=== PATIENT | female | born 1965 | race Caucasian/White ===

== ENCOUNTER → 2016-06-16 | Outpatient (CLI) | payer OTHER ==
[~2016-06-16] MED LIST: NO MEDICATIONS
--- NOTE | ~2016-06-16 | US6 ---
[facility] A Service of [facility] & [facility] RADIOLOGY TEXT RESULTS PATIENT: ALFRED EUCEDA LOCATION: SG : 61 UNIT #: [id number] AGE: [address]: Antonieta Gallardo MD SEX: F ORDER DR: [id number] [address] [address] [id number] O MR#: [id number] Acc #: [id number] NAME: ALFRED EUCEDA : 1965 SEX: F STUDY DATE/TIME: 06/16/2016 8:07 UNIT: SGUS ROOM: STUDY DESCRIPTION: US Abdominal Limited Attending Physician: Antonieta Gallardo M.D. Referring Physician: Antonieta Gallardo M.D. Ordering Physician: Antonieta Gallardo M.D. Primary Care Physician: Say Andrade M.D. MEDICAL IMAGING REPORT This report is preliminary unless electronic signature is present. EXAM Right upper quadrant ultrasound, 06/16/2016. HISTORY Cirrhosis. TECHNIQUE Real-time ultrasonography right upper quadrant performed. COMPARISON 01/17/2015 FINDINGS Visualized portions of pancreas unremarkable. Some portions of pancreas obscured by bowel gas artifact. Liver is slightly nodular in contour. It is coarse in echotexture. Somewhat small in size measuring 10.12 cm in greatest length. The appearance is similar to prior examination. No focal hepatic parenchymal abnormalities seen. The portal vein is patent with normal direction of flow. There is no biliary ductal dilatation. Common bile duct measures 3.3 mm in diameter. Gallbladder normal in volume. No gallstones, pericholecystic fluid, or gallbladder wall thickening suggested. Gallbladder wall measures 2.6 mm in thickness. Right kidney measures 10.50 cm in greatest length. No hydronephrosis or nephrolithiasis. No cystic or solid mass lesion and no perinephric fluid collection. Small amount of free fluid seen adjacent to the liver. Significantly less than on prior study. IMPRESSION 1. Cirrhotic morphology of liver with no suspicious focal parenchymal abnormalities seen. 2. Gallbladder unremarkable. No biliary duct dilatation. 3. Right kidney normal. 4. Visualized portions of pancreas unremarkable but some [facility] RADIOLOGY TEXT RESULTS PATIENT: ALFRED EUCEDA LOCATION: [facility] : 61 UNIT #: [id number] AGE: [address]: Antonieta Gallardo MD SEX: F ORDER DR: obscured by bowel gas artifact. If it would assist in management, the pancreas could be further evaluated with MRI. 5. Small-volume ascites adjacent to liver. Significantly less than on prior study. Dictated by... Antonio Cavanaugh M.D. THIS IS AN ELECTRONICALLY VERIFIED REPORT Antonio Cavanaugh M.D. at 06/17/2016 4:18 PM THEODORA/edwige TD: 06/16/2016 17:32 JOB #: [id number] MEDICAL IMAGING REPORT
== END | disposition home or self-care (01) ==
LOC: SGUS 07:55
DX: K74.60 Unspecified cirrhosis of liver (principal); R18.8 Other ascites
CPT/HCPCS: 76705